=== PATIENT | female | born 1995 | race Caucasian/White ===

== ENCOUNTER → 2016-09-03 | Outpatient (CLI) | payer OTHER ==
[2016-09-03 14:33] LABS: BASO % 0.2 %; BASO ABS # 0.01 K/uL (0-0.2); COMPLETE YES; EOS % 0.8 %; HEMATOCRIT 39.7 % (37-47); IG% 0.2 %; LYMPH % 35.4 %; LYMPH ABS # 2.29 K/uL (1.2-3.4); MEAN CELL VOLUME 91.1 fL (80-100); MEAN CORPUSCULAR HEMOGLOBIN 31.2 pg (25-34); MEAN CORPUSCULAR HGB CONC 34.3 g/dl (32-36); MEAN PLATELET VOLUME 11.5 fL (7.4-10.4); MONO % 6.3 %; NEUT % 57.1 %; PLATELET COUNT 242 K/uL (130-400); RED BLOOD COUNT 4.36 M/uL (4.2-5.4); WHITE BLOOD COUNT 6.46 K/uL (4.8-10.8)
[2016-09-03 15:03] LABS: ALT/SGPT 23 U/L (12-78); AST/SGOT 13 U/L (15-37); BLOOD UREA NITROGEN 11 mg/dl (7-18); BUN/CREATININE RATIO 15.2 (10-20); CALCIUM 8.7 mg/dl (8.5-10.1); CARBON DIOXIDE 25 mmol/L (21-32); CHLORIDE 108 mmol/L (98-107); GLUCOSE 86 mg/dl (70-99); POTASSIUM 4.1 mmol/L (3.5-5.1); SODIUM 141 mmol/L (136-145)
[2016-09-03 15:13] LABS: ALB/GLOB RATIO 1.1 (0.9-2); ALKALINE PHOSPHATASE 45 U/L (45-117)
[2016-09-03 16:38] LABS: LYME DISEASE AB IGG NEG (NEG); LYME DISEASE AB IGM EQUIVOCAL (NEG)
[2016-09-09 09:03] LABS: 18KDIGG BAND NONREACTIVE (NONREACTIVE); 23KDIGG BAND NONREACTIVE (NONREACTIVE); 23KDIGM BAND NONREACTIVE (NONREACTIVE); 28KDIGG BAND NONREACTIVE (NONREACTIVE); 30KDIGG BAND NONREACTIVE (NONREACTIVE); 39KDIGG BAND NONREACTIVE (NONREACTIVE); 39KDIGM BAND NONREACTIVE (NONREACTIVE); 41KDIGG BAND REACTIVE (NONREACTIVE); 41KDIGM BAND NONREACTIVE (NONREACTIVE); 45KDIGG BAND NONREACTIVE (NONREACTIVE); 58KDIGG BAND NONREACTIVE (NONREACTIVE); 66KDIGG BAND REACTIVE (NONREACTIVE); 93KDIGG BAND NONREACTIVE (NONREACTIVE)
== END | disposition home or self-care (01) ==
LOC: C.LAB 12:58
PROVIDERS: ATTEND Family Medicine
DX: R53.83 Other fatigue (principal)

== ENCOUNTER → 2016-11-15 | Outpatient (CLI) | payer OTHER | END | disposition home or self-care (01) | LOC: C.PAPS 11:05 | PROVIDERS: ATTEND Family Medicine | DX: Z12.4 Encounter for screening for malignant neoplasm of cervix (principal) ==

== ENCOUNTER → 2016-11-15 | Outpatient (CLI) | payer OTHER | END | disposition home or self-care (01) | LOC: C.LABSPEC 11:31 | PROVIDERS: ATTEND Family Medicine | DX: Z11.3 Encounter for screening for infections with a predominantly sexual mode of transmission (principal); Z12.4 Encounter for screening for malignant neoplasm of cervix ==

== ENCOUNTER → 2016-11-16 | Outpatient (CLI) | payer OTHER ==
[2016-11-16 18:26] LABS: URINE APPEARANCE CLOUDY (CLEAR); URINE BILIRUBIN NEG (NEG); URINE COLOR YELLOW; URINE EPITHELIAL CELL AUTO >30 /lpf (0-5); URINE NITRITE NEG (NEG); URINE PH 5.5 (4.5-7.5); URINE SPECIFIC GRAVITY 1.022 (1.000-1.030); UROBILINOGEN NEG (NEG)
[2016-11-16 18:27] LABS: MANUAL MICROSCOPIC REQUIRED? NO; REVIEW REQ? YES
== END | disposition home or self-care (01) ==
LOC: C.LABSPEC 17:38
PROVIDERS: ATTEND Family Medicine
DX: R39.9 Unspecified symptoms and signs involving the genitourinary system (principal)

== ENCOUNTER → 2017-01-03 | Outpatient (CLI) | payer OTHER ==
[2017-01-05 18:40] LABS: HSV TYPE 1 DNA Not Detected (Not Detected); HSV TYPE 1&2 DNA SOURCE Swab; HSV TYPE 2 DNA Not Detected (Not Detected)
== END | disposition home or self-care (01) ==
LOC: C.LABSPEC 11:10
PROVIDERS: ATTEND Family Medicine
DX: R87.619 Unspecified abnormal cytological findings in specimens from cervix uteri (principal)

== ENCOUNTER → 2017-01-03 | Outpatient (CLI) | payer OTHER | END | disposition home or self-care (01) | LOC: C.PAPS 14:19 | PROVIDERS: ATTEND Family Medicine | DX: Z12.4 Encounter for screening for malignant neoplasm of cervix (principal) ==

== ENCOUNTER → 2017-10-21 | Outpatient (CLI) | payer OTHER ==
[2017-10-24 13:53] LABS: VARICELLA ZOS VIR IGG VALUE 542.3 INDEX
== END ==
LOC: C.LAB 14:10
PROVIDERS: ATTEND Family Medicine
DX: Z00.00 Encounter for general adult medical examination without abnormal findings (principal)

== ENCOUNTER → 2018-02-24 | Outpatient (CLI) | payer OTHER | END | disposition home or self-care (01) | LOC: C.LAB 08:44 | PROVIDERS: ATTEND Family Medicine | DX: E66.9 Obesity, unspecified (principal) ==

== ENCOUNTER 2024-04-25 18:34 | Inpatient (IN) ==
[2024-04-25] MEDS ORDERED: LIDOCAINE 1% LOCAL 20 ML VIAL INFIL PRN ×2 (19:34→19:37)
[2024-04-25] MEDS ORDERED: ACETAMINOPHEN 500 MG TAB PO PRN (19:35)
[2024-04-25] MEDS ORDERED: OXYTOCIN 30 UNITS/NSS 30 UNITS/500 ML BAG IV PRN ×2 (19:36→19:37)
[2024-04-25 20:08] LABS: Hematocrit (blood only) 33.1 % (37.0-47.0); Hemoglobin 11.1 g/dl (12.0-16.0); Mean Corpuscular Hemoglobin 29.8 pg (25.0-34.0); Mean Corpuscular Hgb Conc 33.5 g/dL (32.0-36.0); Mean Platelet Volume 11.9 fL (9.4-12.4); Platelet Count 216 K/uL (130-400); Red Blood Count 3.72 M/uL (4.20-5.40)
[2024-04-25] MEDS: OXYTOCIN 30 UNITS/NSS 30 UNITS/500 ML BAG IV PRN (20:15)
[2024-04-25] MEDS: LACTATED RINGER'S 1,000 ML IV SCH (20:30)
[2024-04-25] MEDS: CALCIUM CARBONATE 500 MG CHEWABLE TAB PO PRN (21:26)
[2024-04-25] MEDS ORDERED: NALOXONE HCL 0.4 MG/1 ML VIAL/CARP IV PRN (22:06)
[2024-04-25] MEDS ORDERED: LIDOCAINE 2% MPF LOCAL 5 ML VIAL EPI PRN (22:06)
[2024-04-25] MEDS ORDERED: diphenhydrAMINE 50 MG/ML VIAL IV PRN (22:06)
[2024-04-25] MEDS ORDERED: fentaNYL citrate PF 100 MCG/2 ML VIAL EPI PRN (22:06)
[2024-04-25] MEDS ORDERED: NALBUPHINE HCL INJ 10 MG/ML AMP IV PRN (22:06)
[2024-04-25] MEDS ORDERED: fentANYL 2 MCG/ML BUPIVacaine 0.125%-NSS 100ML BAG EPI PRN (22:06)
[2024-04-25] MEDS ORDERED: NALOXONE HCL 1 MG in SODIUM CHLORIDE 0.9% 1,000 ML IV PRN (22:06)
[2024-04-25] MEDS ORDERED: BUPIVACAINE 0.25% PF 30 ML VIAL EPI PRN (22:06)
[2024-04-25] MEDS ORDERED: ePHEDrine sulfate 50 MG/ML AMP IV PRN (22:06)
[2024-04-25] MEDS ORDERED: SODIUM CHLORIDE 0.9% PF INJ 10 ML VIAL EPI PRN (22:06)
[2024-04-25] MEDS ORDERED: ROPIVACAINE 0.5% PF 5 MG/ML 20 ML VIAL EPI PRN (22:06)
--- NOTE | 2024-04-25 22:08 | Anesthesiology Consultation ---
Date of Service April 25, 2024 Assessment & Plan Chart Review Chart Review: Patient NOT seen in Pre Admission Testing and Acceptable Risk for Labor Epidural Consults Requested none ASA ASA3 Proposed Anesthesia Anesthesia Type: Labor Epidural Risk / Benefits Reviewed With: PT / POA / Parent / Guardian, Accepts Plan and Informed Consent Obtained History Height/Weight Height: 5 ft 6 in Weight: 131.088 kg Allergies Allergy/AdvReac Type Severity Reaction Status Date / Time Sulfa (Sulfonamide Allergy Unknown Rash Verified 04/25/24 18:53 Antibiotics) Medications Home Medications Medication Instructions Recorded Confirmed Last Taken albuterol sulfate 90 mcg/actuation 1 - 2 puffs inhalation .COMPLEX 06/09/19 04/25/24 Unknown aerosol inhaler PRN wheezing prenat.vits,uzair,ixo-agdo-ngxbw tab PO 09/06/23 04/25/24 04/23/24 08:00 acetone (urine) test (Ketone Urine #50 ea 12/09/23 04/25/24 Unknown Test strips) blood sugar diagnostic (OneTouch #150 ea 12/09/23 04/25/24 Unknown Verio test strips) blood-glucose meter (OneTouch #1 ea 12/09/23 04/25/24 Unknown Verio Reflect Meter) lancets 33 gauge (OneTouch Delica #150 ea 12/09/23 04/25/24 Unknown Plus Lancet) Active Medications Generic Name Dose Route Start Last Admin Trade Name Freq PRN Reason Stop Dose Admin Calcium Carbonate 1,000 mg 04/25/24 19:35 04/25/24 21:26 Calcium Carbonate 500 Mg Chewable Tab PO 05/25/24 19:34 1,000 mg Q8H PRN Administration Indigestion Oxytocin 30 units in 500 mls @ 6 mls/hr 04/25/24 19:37 04/25/24 21:26 Pitocin 30 Units/Nss IV 05/25/24 19:36 0.36 units/hr .Q24H PRN 6 mls/hr Labor Induction/Augmentation Titration Protocol 0.36 UNITS/HR Lactated Ringer's 1,000 mls @ 50 mls/hr 04/25/24 20:30 04/25/24 22:26 Lr IV 04/26/24 20:29 50 mls/hr .Q20H MARIEL Infusion NPO Date Last Intake of Fluids: 04/25/24 Time Last Intake of Fluids: 21:00 Date Last Intake of Solids: 04/25/24 Time Last Intake of Solids: 15:00 Exercise / Class Metabolic Activity II 4-5 Yardwork/Stairs/Walk up hill Past Family History Family History Grandmother (Maternal) Diabetes Glaucoma Mother Hypertension Myocardial infarction Father Myocardial infarction Hypertension Sister Known health problems: none Denies family history of Pancreatic cancer Ovarian cancer Prostate cancer Breast cancer Colorectal cancer Uterine cancer Past Surgical History Surgical History [place] teeth removed Past Anesthesia History No Hx of Anesthesia Complications and No Family Hx of Anesthesia Complications History of PONV No Hx of PONV and No Hx of Motion Sickness Social History Smoking Status: Never smoker Do You Dip or Chew Tobacco: No Hx Alcohol Use: No Hx Substance Use: No substance use type: does not use Review of Systems ROS Unobtainable: All systems reviewed & are unremarkable except as noted in HPI & below Integumentary: no problem reported Physical Exam Vital Signs Last Vital Signs Temp 36.7 C 04/25/24 20:48 Pulse 88 04/25/24 21:24 Resp 18 04/25/24 20:48 BP 117/59 L 04/25/24 21:24 ENMT Mouth: no TMJ abnormality Thyromental Distance: > or= 3.5 Finger Breadths Mallampati Class: II Neck normal visual inspection and trachea midline; neck extension not limited Respiratory normal respiratory effort Auscultation: lungs clear to auscultation bilaterally Cardiovascular Rate/Rhythm: regular rate and regular rhythm Heart Sounds: no murmur Musculoskeletal Spine: normal cervical ROM Extremities: full ROM of extremities Neurologic moves all extremities Psychiatric Orientation: alert and oriented x 3 Testing Laboratory Results 04/25/24 19:45 Blood Type O Positive 04/25/24 19:49 Antibody Screen NEGATIVE 04/25/24 19:49 04/25/24 19:37 POC Glucose 94
[2024-04-25] MEDS: fentaNYL citrate PF 100 MCG/2 ML VIAL ONE (22:34)
[2024-04-25] MEDS: BUPIVACAINE 0.25% PF 30 ML VIAL ONE (22:35)
[2024-04-25] MEDS: LIDOCAINE 2%/EPINEPHRINE 1:200,000 20 ML PF ONE (22:35)
[2024-04-25] MEDS: fentANYL 2 MCG/ML BUPIVacaine 0.125%-NSS 100ML BAG ONE (22:37)
[2024-04-25] MEDS: ePHEDrine sulfate 50 MG/ML AMP ONE (22:41)
--- NOTE | 2024-04-26 02:17 | Labor Progress Brief Note ---
Date of Service April 26, 2024 Blanca Chiu is a 28-year-old G1, P0 currently at 40 weeks 3 days gestational age presented earlier this this evening for evaluation of leakage of fluid and was determined to be ruptured on exam. Patient reports that she had leakage of fluid that had been persistence since she she had a membrane stripping in clinic this morning around 10 AM. She is denying any regular contractions, vaginal bleeding and noted good movement on admission. Patient was admitted and started on oxytocin per regular protocol for premature rupture of membranes. She is initially found to be 1.5 cm dilated 80% effaced -2 station. Patient was noted to have late decelerations and IUPC and FSE placed for better evaluation. Late decelerations were noted to be persistent and progressed into minimal variability. Patient was noted to have an unchanged cervix from time of admission and discussed recommendation to proceed with a section intolerance of labor due to late decelerations with minimal variability remote from delivery. consent reviewed and signed and all questions answered. Reviewed increased risks associated with a labor resulting in a C- section including increased risk for bleeding, infection, DVT and wound breakdown. Assessment & Plan (1) PROM (premature rupture of membranes): PROM onset of labor timing: unspecified duration between rupture of membranes and onset of labor PROM gestational age: full term Qualified Code(s): O42.92 - Full-term premature rupture of membranes, unspecified as to length of time between rupture and onset of labor (2) Encounter for induction of labor: (3) Non-reassuring heart rate with late deceleration: Admission and Anticipated Discharge Date Admission Date: April 25, 2024 Results & Data Vital Signs (Past 12 Hours) Vital Signs Temp Pulse Resp BP Pulse Ox 04/26/24 02:12 110 H 97 04/26/24 02:11 160/64 H 04/26/24 02:07 127 H 98 04/26/24 02:02 89 98 04/26/24 01:57 96 H 98 04/26/24 01:56 95 H 134/63 04/26/24 01:52 88 99 04/26/24 01:47 93 H 100 04/26/24 01:43 91 H 84 L 04/26/24 01:42 90 95 04/26/24 01:41 96 H 124/63 04/26/24 01:37 94 H 99 04/26/24 01:32 82 98 04/26/24 01:30 18 04/26/24 01:30 18 04/26/24 01:28 16 04/26/24 01:28 36.8 C 16 04/26/24 01:27 87 112/56 L 100 04/26/24 01:22 91 H 99 04/26/24 01:17 101 H 99 04/26/24 01:12 92 H 99 04/26/24 01:10 112 H 98/57 L 04/26/24 01:07 82 98 04/26/24 01:02 87 98 04/26/24 00:57 99 H 99 04/26/24 00:55 106 H 105/56 L 04/26/24 00:52 98 H 100 04/26/24 00:47 87 100 04/26/24 00:42 100 H 99 04/26/24 00:40 96 H 116/63 04/26/24 00:37 98 H 100 04/26/24 00:32 96 H 100 04/26/24 00:27 105 H 100 04/26/24 00:26 103 H 107/57 L 04/26/24 00:22 113 H 100 04/26/24 00:17 96 H 99 04/26/24 00:12 99 H 98/53 L 99 04/26/24 00:07 104 H 98 04/26/24 00:02 88 94 04/25/24 23:58 90 98/55 L 04/25/24 23:57 83 100 04/25/24 23:52 93 H 100 04/25/24 23:47 117 H 97 04/25/24 23:42 81 100 04/25/24 23:40 83 116/58 L 04/25/24 23:37 89 98 04/25/24 23:32 103 H 98 04/25/24 23:27 103 H 99 04/25/24 23:26 93 H 121/59 L 04/25/24 23:22 94 H 100 04/25/24 23:17 92 H 97 04/25/24 23:12 36.6 C 109 H 18 99 04/25/24 23:10 100 H 116/60 04/25/24 23:07 100 H 115/55 L 98 04/25/24 23:02 97 H 120/73 100 04/25/24 23:00 16 10/23/24 23:00 16 04/25/24 22:59 123 H 118/61 04/25/24 22:57 111 H 98 04/25/24 22:52 127 H 129/63 99 04/25/24 22:47 100 04/25/24 22:47 123 H 04/25/24 22:47 106 H 133/61 04/25/24 22:45 109 H 133/64 04/25/24 22:43 103 H 88/51 L 04/25/24 22:42 91 H 97 04/25/24 22:41 86 79/43 L 04/25/24 22:39 96 H 85/49 L 04/25/24 22:37 98 04/25/24 22:37 118 H 04/25/24 22:37 106 H 105/59 L 04/25/24 22:35 106 H 107/57 L 04/25/24 22:32 98 H 127/66 99 04/25/24 22:27 92 H 99 04/25/24 22:22 86 99 04/25/24 22:21 88 116/69 04/25/24 22:18 108 H 93 04/25/24 22:17 97 H 99 04/25/24 21:24 88 117/59 L 04/25/24 20:48 18 04/25/24 20:48 36.7 C 18 04/25/24 20:08 93 H 120/74 04/25/24 18:54 36.9 C 100 H 18 121/66 04/25/24 18:53 36.9 C 100 H 18 121/66 Coding Level of Care Code None Diagnoses Full-term premature rupture of membranes, unspecified duration to onset of labor O42.92 PROM onset of labor timing: unspecified duration between rupture of membranes and onset of labor PROM gestational age: full term Encounter for induction of labor Z34.90 Non-reassuring heart rate with late deceleration O36.8390
[2024-04-26] MEDS ORDERED: KETOROLAC 30 MG/ML VIAL ONE (02:24)
[2024-04-26] MEDS ORDERED: LIDOCAINE 2%/EPINEPHRINE 1:200,000 20 ML PF ONE (02:24)
[2024-04-26] MEDS ORDERED: OXYTOCIN 10 UNITS/ML VIAL ONE (02:24)
[2024-04-26] MEDS ORDERED: MoRPHine SULFATE PF 1 MG/ML 10 ML AMP/VIAL ONE (02:24)
[2024-04-26] MEDS ORDERED: ONDANSETRON INJ 2 MG/ML 2 ML VIAL ONE (02:24)
[2024-04-26] MEDS ORDERED: DEXAMETHASONE SOD INJ 4 MG/ML VIAL ONE (02:24)
--- NOTE | 2024-04-26 02:31 | Communication Note ---
Date of Service: April 26, 2024 c/s called for intolerance of labor. Patient has working epidural. Will proceed with epidural anesthetic. ASA3E
[2024-04-26] MEDS: CITRIC ACID/SODIUM CITRATE 15 ML UDC PO STA (02:37)
[2024-04-26] MEDS: ceFAZolin 3000MG 3,000 MG/72.5 ML BAG IV STA (02:45)
[2024-04-26] MEDS ORDERED: diphenhydrAMINE 50 MG/ML VIAL ONE (03:29)
[2024-04-26] MEDS: CITRIC ACID/SODIUM CITRATE 15 ML UDC ONE (03:45)
[2024-04-26] MEDS: SODIUM CHLORIDE 0.9% PF INJ 10 ML VIAL ONE (03:46)
[2024-04-26] MEDS ORDERED: BENZOCAINE 20% SPRY 85 APPLN/85 GM CAN EXT PRN (03:47)
[2024-04-26] MEDS ORDERED: SENNA 8.6 MG TAB PO PRN (03:47)
[2024-04-26] MEDS ORDERED: MAGNESIUM HYDROXIDE SUSP 30 ML UDC PO PRN (03:47)
[2024-04-26] MEDS ORDERED: HYDROCORTISONE ACETATE 25 MG SUPP PR PRN (03:47)
[2024-04-26] MEDS ORDERED: CALCIUM CARBONATE 500 MG CHEWABLE TAB PO PRN (03:47)
--- NOTE | 2024-04-26 03:50 | Operative Report ---
PG Post Operative Report Pre & Post Diagnosis Operation Date: 04/26/24 02:15 Pre-Op Diagnosis: 1. term . primary for intolerance to labor. Post-Op Diagnosis: 1. term . primary for intolerance to labor. I identified the patient and participated in the time-out.: Yes Procedure Operation Date: 04/26/24 02:15 Primary low-transverse section Surgeon Naresh Landrum MD Frame Coverer Nursing staff Estimated Blood Loss 719 (QBL) Findings Consistent with Post-Op Diagnosis Specimens Placenta Description of Procedure Patient was taken the operating room after consent was ensured. Upon presentation she was properly identified. Anesthesia obtained and patient prepped and draped in normal sterile fashion. Preprocedural timeout was performed. A Pfannenstiel incision was made with a knife. This was carried down to underlying fascia with the Bovie and blunt dissection. The fascia was nicked at the midline with a knife and extended laterally with pickups and Sarabia scissors. Abdominal cavity was entered bluntly and placed on stretch to provide adequate room for delivery. A low transverse uterine incision was made with a knife. Head of the was delivered through the hysterotomy followed by body and shoulders. noted to be vigorous at time of delivery and a 30 second delayed cord clamping was initiated after which the cord was double clamped and cut. Baby taken to the waiting nursery staff. Attention was turned to delivery of the placenta which delivered intact with three-vessel cord gentle cord traction. Uterus was exteriorized and several passes were made to remove any remaining membranes with a dry lap. Hysterotomy was reapproximated with 0 Vicryl continuous running lock stitch with a second imbricating layer performed. Methergine injected directly into the uterus due to lower uterine segment atony. Posterior cul-de-sac cleaned of clots and debri s's. Uterus returned maternal abdomen and right left paracolic gutters cleaned of clots and debris's. Hysterotomy remained hemostatic. Subcutaneous fascia and muscle layers inspected noted be hemostatic. Fascia was reapproximated 0 Vicryl continuous running stitch. Subcutaneous layer reapproximated 2 layers using 2-0 plain. Skin reapproximated with 3-0 Vicryl and continuous subcuticular stitch. Dermabond placed on top. Both mother and in stable condition at the completion of the case. Needle sponge and instrument counts correct at the completion of the case. No complications noted and blood loss per QBL I attest to the content of the Intraoperative Record and any orders documented therein. Any exceptions are noted below. OB Procedure charges OB Charges [id number]
--- NOTE | 2024-04-26 03:51 | Post Operative Brief Note ---
PG Immediate Post Op with CF Date of Surgery April 26, 2024 Pre & Post Diagnosis Operation Date: 04/26/24 02:15 Pre-Op Diagnosis: 1. term . primary for intolerance to labor. Post-Op Diagnosis: 1. term . primary for intolerance to labor. I identified the patient and participated in the time-out.: Yes Procedure Operation Date: 04/26/24 02:15 Primary low-transverse section Surgeon Naresh Landrum MD [employer]elp [employer]or Nursing staff Estimated Blood Loss 719 (QBL) Findings Consistent with Post-Op Diagnosis Specimens Specimen Description: 1. cord blood 2. placenta Drains Watson Catheter
[2024-04-26] MEDS ORDERED: ePHEDrine sulfate 50 MG/ML AMP IV PRN (03:59)
[2024-04-26] MEDS ORDERED: HYDROmorphone INJ 0.5 MG/0.5 ML SYR IV PRN ×2 (03:59→22:00)
[2024-04-26] MEDS ORDERED: NALOXONE HCL 0.08 MG in SYRINGE 1.8 ML IV PRN (03:59)
[2024-04-26] MEDS ORDERED: diphenhydrAMINE 50 MG/ML VIAL IV PRN ×2 (03:59→22:00)
[2024-04-26] MEDS ORDERED: NALBUPHINE HCL INJ 10 MG/ML AMP IV PRN (03:59)
[2024-04-26] MEDS ORDERED: NALOXONE HCL 1 MG in SODIUM CHLORIDE 0.9% 1,000 ML IV PRN (03:59)
[2024-04-26] MEDS ORDERED: NALOXONE HCL 0.4 MG/1 ML VIAL/CARP IV PRN (03:59)
[2024-04-26] MEDS ORDERED: MEPERIDINE HCL 25 MG/ML CARP/VIAL IV PRN (03:59)
[2024-04-26] MEDS ORDERED: METOCLOPRAMIDE HCL 20 MG in SODIUM CHLORIDE 0.9% 50 ML IV PRN (03:59)
[2024-04-26] MEDS ORDERED: PROMETHAZINE 6.25 MG/50.25 ML BAG IV PRN (03:59)
[2024-04-26] MEDS ORDERED: DROPERIDOL 5 MG/2 ML VIAL IV PRN (03:59)
[2024-04-26] MEDS ORDERED: ONDANSETRON INJ 2 MG/ML 2 ML VIAL IV PRN (03:59)
[2024-04-26] MEDS ORDERED: DC INTRASPINAL MORPHINE SCH (04:00)
[2024-04-26] MEDS ORDERED: NO NARCOTICS OR SEDATIVES SCH (04:00)
--- NOTE | 2024-04-26 04:01 | Anesthesiology Progress Note ---
Date of Service April 26, 2024 Anesthesia Post Procedure Vital Signs Vital Signs: Temp Pulse Resp BP Pulse Ox 04/26/24 03:59 111 H 161/67 H 100 04/26/24 02:42 133 H 100 04/26/24 02:41 114 H 194/90 H 04/26/24 02:37 106 H 98 04/26/24 02:32 126 H 100 04/26/24 02:27 106 H 100 04/26/24 02:22 125 H 100 04/26/24 02:17 105 H 100 04/26/24 02:12 110 H 97 04/26/24 02:11 160/64 H 04/26/24 02:07 127 H 98 04/26/24 02:02 89 98 04/26/24 01:57 96 H 98 04/26/24 01:56 95 H 134/63 04/26/24 01:52 88 99 04/26/24 01:47 93 H 100 04/26/24 01:43 91 H 84 L 04/26/24 01:42 90 95 04/26/24 01:41 96 H 124/63 04/26/24 01:37 94 H 99 04/26/24 01:32 82 98 04/26/24 01:30 18 04/26/24 01:30 18 04/26/24 01:28 16 04/26/24 01:28 36.8 C 16 04/26/24 01:27 87 112/56 L 100 04/26/24 01:22 91 H 99 04/26/24 01:17 101 H 99 04/26/24 01:12 92 H 99 04/26/24 01:10 112 H 98/57 L 04/26/24 01:07 82 98 04/26/24 01:02 87 98 04/26/24 00:57 99 H 99 04/26/24 00:55 106 H 105/56 L 04/26/24 00:52 98 H 100 04/26/24 00:47 87 100 04/26/24 00:42 100 H 99 04/26/24 00:40 96 H 116/63 04/26/24 00:37 98 H 100 04/26/24 00:32 96 H 100 04/26/24 00:27 105 H 100 04/26/24 00:26 103 H 107/57 L 04/26/24 00:22 113 H 100 04/26/24 00:17 96 H 99 04/26/24 00:12 99 H 98/53 L 99 04/26/24 00:07 104 H 98 04/26/24 00:02 88 94 04/25/24 23:58 90 98/55 L 04/25/24 23:57 83 100 04/25/24 23:52 93 H 100 04/25/24 23:47 117 H 97 04/25/24 23:42 81 100 04/25/24 23:40 83 116/58 L 04/25/24 23:37 89 98 04/25/24 23:32 103 H 98 04/25/24 23:27 103 H 99 04/25/24 23:26 93 H 121/59 L 04/25/24 23:22 94 H 100 04/25/24 23:17 92 H 97 04/25/24 23:12 36.6 C 109 H 18 99 04/25/24 23:10 100 H 116/60 04/25/24 23:07 100 H 115/55 L 98 04/25/24 23:02 97 H 120/73 100 04/25/24 23:00 16 04/25/24 23:00 16 04/25/24 22:59 123 H 118/61 04/25/24 22:57 111 H 98 04/25/24 22:52 127 H 129/63 99 04/25/24 22:47 100 04/25/24 22:47 123 H 04/25/24 22:47 106 H 133/61 04/25/24 22:45 109 H 133/64 04/25/24 22:43 103 H 88/51 L 04/25/24 22:42 91 H 97 04/25/24 22:41 86 79/43 L 04/25/24 22:39 96 H 85/49 L 04/25/24 22:37 98 04/25/24 22:37 118 H 04/25/24 22:37 106 H 105/59 L 04/25/24 22:35 106 H 107/57 L 04/25/24 22:32 98 H 127/66 99 04/25/24 22:27 92 H 99 04/25/24 22:22 86 99 04/25/24 22:21 88 116/69 04/25/24 22:18 108 H 93 04/25/24 22:17 97 H 99 04/25/24 21:24 88 117/59 L 04/25/24 20:48 18 04/25/24 20:48 36.7 C 18 04/25/24 20:08 93 H 120/74 04/25/24 18:54 36.9 C 100 H 18 121/66 04/25/24 18:53 36.9 C 100 H 18 121/66 Transfer of Care Handoff Completed per policy Notes Mental Status: alert / awake / arousable Patient Amnestic to Procedure: Yes Nausea / Vomiting: adequately controlled Pain: adequately controlled Airway Patency, RR, SpO2: stable & adequate BP & HR: stable & adequate Hydration State: stable & adequate Neuraxial Anesthesia: was administered and sensory block is resolving Anesthetic Complications: no major complications apparent and Pt Satisfied with anesthetic care
--- NOTE | 2024-04-26 04:01 | Anesthesia Procedure Note ---
Date of Service April 26, 2024 Anesthesia Post Epidural Note Vital Signs Vital Signs: Temp Pulse Resp BP Pulse Ox 36.8 C 111 H 18 161/67 H 100 04/26/24 01:28 04/26/24 03:59 04/26/24 01:30 04/26/24 03:59 04/26/24 03:59 Notes Mental Status: alert / awake / arousable and participated in evaluation Nausea / Vomiting: adequately controlled Pain: adequately controlled Airway Patency, RR, SpO2: stable & adequate BP & HR: stable & adequate Hydration State: stable & adequate Neuraxial Anesthesia: was administered and sensory block is resolving Anesthetic Complications: no major complications apparent Epidural: Removed without complications and With tip intact
[2024-04-26] MEDS ORDERED: AZITHROMYCIN 500 MG in DEXTROSE 5% 250 ML IV SCH (06:00)
[2024-04-26] MEDS ORDERED: ceFAZolin 3000MG 3,000 MG/72.5 ML BAG IV SCH (06:00)
[2024-04-26] MEDS ORDERED: CITRIC ACID/SODIUM CITRATE 15 ML UDC PO SCH (06:00)
[2024-04-26] MEDS ORDERED: Nursing to Pharmacy Communication SCH ×2 (06:30→08:15)
[2024-04-26] MEDS ORDERED: SODIUM CHLORIDE 0.9% 100 ML IV PRN (06:31)
[2024-04-26] MEDS ORDERED: OXYTOCIN 30 UNITS/NSS 30 UNITS/500 ML BAG IV SCH (07:45)
[2024-04-26] MEDS: BUPIVACAINE 0.25% PF 30 ML VIAL EPI STA (08:10)
[2024-04-26] MEDS: LIDOCAINE 2%/EPINEPHRINE 1:200,000 20 ML PF EPI STA (08:11)
[2024-04-26] MEDS: SODIUM CHLORIDE 0.9% PF INJ 10 ML VIAL EPI STA (08:11)
[2024-04-26] MEDS: DIPHTHER/TETAN/PERTUS Vaccine (Tdap, Adol/Adult) 0.5mL IM ONE (08:11)
[2024-04-26] MEDS: fentaNYL citrate PF 100 MCG/2 ML VIAL EPI STA (08:11)
[2024-04-26] MEDS ORDERED: ACETAMINOPHEN 325 MG TAB PO SCH ×2 (08:30→11:00)
[2024-04-26] MEDS: ONDANSETRON INJ 2 MG/ML 2 ML VIAL IV PRN (10:32)
[2024-04-26] MEDS: KETOROLAC 30 MG/ML VIAL IV SCH (10:34)
[2024-04-26] MEDS: FERROUS SULFATE 325 MG TAB PO SCH (10:35)
[2024-04-26] MEDS: DOCUSATE SODIUM 100 MG CAP PO SCH (10:35)
[2024-04-26] MEDS: PRENATAL VITAMIN 1 TAB PO SCH (10:36)
[2024-04-26] MEDS: ACETAMINOPHEN 325 MG TAB PO SCH (10:36)
[2024-04-26] MEDS: SIMETHICONE 80 MG CHEW PO SCH (10:36)
[2024-04-26] MEDS ORDERED: diphenhydrAMINE Capsule 25 MG CAP PO PRN (22:00)
[2024-04-26] MEDS ORDERED: PROMETHAZINE 12.5 MG/50.5 ML BAG IV PRN (22:00)
[2024-04-26] MEDS ORDERED: oxyCODONE HCL IR 5 MG TAB (IMMEDIATE RELEASE) PO PRN (22:00)
[2024-04-27 03:56] VITALS: O2SAT 100
[2024-04-27] MEDS ORDERED: KETOROLAC 30 MG/ML VIAL IV PRN (04:00)
[2024-04-27] MEDS: OXYTOCIN 20 UNITS/LR 1,000 ML IV SCH (04:03)
[2024-04-27] MEDS: MoRPHine SULFATE PF 1 MG/ML 10 ML AMP/VIAL EPI ONE (04:05)
[2024-04-27] MEDS: LACTATED RINGER'S 1,000 ML IV SCH (04:05)
[2024-04-27] MEDS: AZITHROMYCIN 500 MG in DEXTROSE 5% 250 ML IV STA (04:05)
--- NOTE | 2024-04-27 05:51 | Obstetrical Progress Note ---
Date of Service <Olman LiebermanDesirae Granados DO - Last Filed: 04/27/24 07:04> April 27, 2024 Assessment & Plan <Olman LiebermanDesirae Granados DO - Last Filed: 04/27/24 07:04> (1) state: Patient is a 28yo day 1 s/p low transverse for intolerance to labor. Feels well today, HR slightly elevated but otherwise VSS Continue care Ambulation and as tolerated Pain control as needed Incision site care Hgb: 11.1, asymptomatic Home: possibly Tuesday Follow up with Dr. Landrum in 6wks <April Martinez MD - Last Filed: 04/27/24 07:39> (1) state: Subjective <Olman LiebermanDesirae Granados DO - Last Filed: 04/27/24 07:04> Patient is a 28yo day 1 s/p low transverse for intolerance to labor. Ambulation: yes Voiding: urinating, no BM yet Passing gas: yes Diet tolerance: yes, OB reg Lochia: decreasing Feeding type: full bottle feeds, going well Current pain: abdominal cramping, otherwise minimal Resting comfortably this AM in NAD. Denies fever, chills, headache, vision changes, chest pain, SOB, abdominal pain, LE pain/swelling, or LE numbness/tingling. Review of Systems as above Physical Exam <Olman LiebermanDesirae Granados DO - Last Filed: 04/27/24 07:04> General: A&Ox4, resting comfortably in NAD, nontoxic in appearance Skin: warm, dry, intact HEENT: NC/AT, anicteric sclerae, conjunctiva w/o injection, moist mucous membranes Heart: +s1/s2, RRR, no m/r/g Lungs: equal air entry b/l, clear to auscultation b/l, no wheeze, rales, or rhonchi Abd: +BS, soft, uterine fundus firm, midline and 1 fingerwidth superior to umbilicus, nontender to palpation Ext: no significant swelling, no erythema or tenderness to palpation; no cyanosis or clubbing Neuro: speech intact, no facial droop, moves all extremities on command Results & Data <Olman Granados DO - Last Filed: 04/27/24 07:04> Vital Signs (Past 12 Hours) Vital Signs Temp Pulse Resp BP Pulse Ox O2 Del Method 04/27/24 03:45 36.4 C L 96 H 18 109/65 100 Room Air 04/26/24 23:30 16 99 04/26/24 22:38 36.9 C 84 16 98/65 L 99 Room Air 04/26/24 21:50 16 98 04/26/24 21:00 18 99 04/26/24 20:00 16 98 04/26/24 19:00 16 100 04/26/24 18:30 16 98 Supervising Physician <April Martinez MD - Last Filed: 04/27/24 07:39> Co-Signing Physician Notes Resident Physician Supervision Note: I interviewed and examined the patient. Discussed with Dr. Granados and agree with findings and plan as documented in the note. Any exceptions or clarifications are listed here: [ ] Documented By: April Martinez MD, FACOG Resident Activity Tracking <Olman Granados DO - Last Filed: 04/27/24 07:04> Resident Involvement: Resident Care Provided Care Provided: OB Delivery
[2024-04-27 08:08] LABS: Hemoglobin 8.4 g/dl (12.0-16.0)
[2024-04-27] MEDS: IBUPROFEN 600 MG TAB PO SCH (10:52)
[2024-04-27] MEDS: bisacodyL 5 MG TABEC PO SCH (21:42)
[2024-04-28] MEDS ORDERED: bisacodyL 10 MG SUPP PR PRN (03:47)
[2024-04-28] MEDS: IBUPROFEN 600 MG TAB PO PRN (04:37)
--- NOTE | 2024-04-28 06:13 | Obstetrical Progress Note ---
Date of Service <Olman CarltonDO kathi - Last Filed: 04/28/24 07:22> April 28, 2024 Assessment & Plan <Olman GranadosDO - Last Filed: 04/28/24 07:22> (1) state: Patient is a 28yo day 2 s/p low transverse for intolerance to labor. Continues to feel well today, VSS Continue care Ambulation and as tolerated Pain control as needed Incision site care Hgb: 11.1 -> 8.4, asymptomatic Home: tomorrow pending pt and baby continuing to do well Follow up with Dr. Landrum in 6wks. <Michelle Lowe MD, FACOG - Last Filed: 04/28/24 08:25> (1) state: Day #:: 2 Subjective <Olman CarltonDO kathi - Last Filed: 04/28/24 07:22> Patient is a 28yo day 2 s/p low transverse for intolerance to labor. Ambulation: yes Voiding: urinating, passed BM Passing gas: yes Diet tolerance: yes, OB reg Lochia: decreasing Feeding type: full bottle feeds, going well Current pain: minimal MMR immune, Rh+ no rhogam. Resting comfortably this AM in NAD. Denies fever, chills, headache, vision changes, chest pain, SOB, abdominal pain, LE pain/swelling, or LE numbness/tingling. Review of Systems as above Physical Exam <Olman LiebermanDesirae DarwinDO fredis - Last Filed: 04/28/24 07:22> General: A&Ox4, resting comfortably in NAD, nontoxic in appearance Skin: warm, dry, intact; low transverse incision site healing well, no erythema/swelling/oozing/bleeding HEENT: NC/AT, anicteric sclerae, conjunctiva w/o injection, moist mucous membranes Heart: +s1/s2, RRR, no m/r/g Lungs: equal air entry b/l, clear to auscultation b/l, no wheeze, rales, or rhon chi Abd: +BS, soft, uterine fundus firm, midline and 1 fingerwidth inferior to umbilicus, nontender to palpation Ext: no significant swelling, no erythema or tenderness to palpation; no cyanosis or clubbing Neuro: speech intact, no facial droop, moves all extremities on command Results & Data <Olman Granados DO - Last Filed: 04/28/24 07:22> Vital Signs (Past 12 Hours) Vital Signs Temp Pulse Resp BP O2 Del Method 04/27/24 23:15 36.5 C 81 14 103/65 Room Air 04/27/24 19:45 36.5 C 112 H 16 104/68 Room Air Supervising Physician <Michelle Lowe MD, FACOG - Last Filed: 04/28/24 08:25> Co-Signing Physician Notes Resident Physician Supervision Note: I was present with Dr. Granados during the history and exam. I discussed the case with the resident and agree with the findings and plan as documented in the note. Any exceptions or clarifications are listed here: stable doing well and ready to go home. instructions reviewed. abd soft ff 2 down nt, incision c/d/i ext nt calves. pod #2 s/p c/s wants to go home, will dc. instructions reviewed. does not want narcotic sent, using otc meds with no pain issues. bottle feeding. Documented By: Michelle Lowe MD, FACOG Resident Activity Tracking <Olman Granados DO - Last Filed: 04/28/24 07:22> Resident Involvement: Resident Care Provided Care Provided: OB Delivery
[2024-04-28 07:56] VITALS: BP 115/79; RESP 16; TEMP 97.9
[2024-04-28 09:22] VITALS: PULSE 69
[2024-04-28] MEDS: ACETAMINOPHEN 325 MG TAB PO PRN (11:23)
== END 2024-04-28 11:35 | disposition home or self-care (01) | DRG 788 ==
LOC: OPB 18:34 → 4S1 18:36 → 4E2 04-26 08:19